=== PATIENT | male | born 1985 | race African-American/Black ===

== ENCOUNTER 2019-05-17 10:25 | Emergency (ER) | payer BC ==
[~2019-05-17] VITALS: Ht 167.6 cm; Wt 68.0 kg
[2019-05-17] MEDS ORDERED: ROBAXIN 750 MG750 MG PO (11:51)
[2019-05-17] MEDS ORDERED: MOBIC15 MG PO (11:51)
[2019-05-17 11:54] VITALS: BP 118/79
== END 2019-05-17 11:55 | disposition home or self-care (01) ==
LOC: ER 10:25 → EDBD 10:25 → ER 11:55
DX: M54.42 Lumbago with sciatica, left side (principal); F17.210 Nicotine dependence, cigarettes, uncomplicated

== ENCOUNTER 2020-08-15 18:50 | Emergency (ER) | payer BC ==
[~2020-08-15] VITALS: Ht 167.6 cm; Wt 70.3 kg
[~2020-08-15 18:50] MED LIST: MOBIC15 MG PO; ROBAXIN 750 MG750 MG PO
[2020-08-15 18:57] VITALS: BP 162/97
[2020-08-15] MEDS ORDERED: TESSALON PERLE100 MG PO (19:05)
== END 2020-08-15 19:15 | disposition home or self-care (01) ==
LOC: ER 18:50
DX: U07.1 COVID-19 (principal); J06.9 Acute upper respiratory infection, unspecified; F17.210 Nicotine dependence, cigarettes, uncomplicated; Z79.899 Other long term (current) drug therapy